=== PATIENT | female | born 1950 | race Asian ===

== ENCOUNTER → 2022-10-09 | Day surgery (SDC) | payer OTHER ==
[~2022-10-09] MED LIST: FENTANYL CITRATE/PF 100MCG/2 ML INJ ONE; LIDOCAINE HCL 1% 2 ML AMP ONE; MIDAZOLAM HCL 2 MG/2 ML VIAL ONE; MULTI-VITAMIN1 EACH PO; POVIDONE IODINE 5% (OPTH) 30 ML BTL ONE; PREOP PHACO EYE KIT ONE; SYNTHROID50 MCG PO
[2022-10-09 12:14] VITALS: BP 134/76; PULSE 66; RESP 18; O2SAT 97
== END | disposition home or self-care (01) ==
LOC: OR 08:43 → EDSEX 14:00
PROVIDERS: ATTEND Ophthalmology
DX: H25.11 Age-related nuclear cataract, right eye (principal); E03.9 Hypothyroidism, unspecified; Z79.899 Other long term (current) drug therapy
CPT/HCPCS: 66984; J2001; J2250; J3010; V2787